=== PATIENT | female | born 1995 | race African-American/Black ===

== ENCOUNTER 2018-09-07 02:26 | Inpatient (IN) ==
[2018-09-07 03:35] LABS: Apearance,Urine CLEAR (Clear); Bacteria,Urine Occasional /HPF (Few); Bilirubin,Urine Negative (Negative); Blood, Urine Moderate mg/dL (Negative); Glucose,Urine (UA) Negative (Negative); Ketones,Urine Negative (Negative); Mucus,Urine Few /LPF (Occasional); Nitrite,Urine Negative (Negative); Protein,Urine Negative; RBC,Urine 19 /HPF (0-4); Renal Epithelial Cells,Urine Occasional /HPF (<1); Squamous Epithelial Cell,Urine Occasional /HPF (0-10); Urine Color Yellow (Yellow); Urine Specific Gravity 1.019 (1.001-1.035); Urine Urobilinogen < 2.0 EU/DL (0.2-1.0); WBC,Urine 19 /HPF (0-6)
[2018-09-07] MEDS ORDERED: ONDANSETRON 4 MG/2 ML VIAL IV PRN (10:21)
[2018-09-07] MEDS ORDERED: LIDOCAINE 1% 50 ML VIAL MISC INJ ONE (10:21)
[2018-09-07] MEDS ORDERED: BUTORPHANOL 2 MG/ML VIAL IV PRN (10:21)
[2018-09-07] MEDS ORDERED: OXYTOCIN/LR 20 UNIT/1,000 ML BAG IV SCH (10:30)
[2018-09-07] MEDS ORDERED: FAMOTIDINE 20 MG/2 ML VIAL IV ONE (10:45)
[2018-09-07] MEDS ORDERED: LACTATED RINGERS 1,000 ML IV ONE (10:45)
[2018-09-07] MEDS ORDERED: ePHEDrine 50 MG/ML AMP IV PRN (10:45)
[2018-09-07] MEDS ORDERED: CITRIC ACID/SODIUM CITRATE 30 ML UDCUP PO ONE (10:45)
[2018-09-07] MEDS ORDERED: NALOXONE 0.4 MG/ML VIAL IV PRN (10:46)
[2018-09-07] MEDS ORDERED: LACTATED RINGERS 250 ML IV PRN (10:46)
[2018-09-07] MEDS ORDERED: hydrOXYzine HCL 25 MG/1 ML VIAL IM PRN (10:46)
[2018-09-07] MEDS ORDERED: PROMETHAZINE 25 MG/1 ML VIAL IM ONE (10:46)
[2018-09-07] MEDS ORDERED: diphenhydrAMINE 50 MG/1 ML VIAL IV PRN ×2 (10:46)
[2018-09-07 10:49] LABS: Basophils % 0.2 % (0.0-0.8); Eosinophils # 0.1 10*3/uL (0.0-0.87); Eosinophils % 0.7 % (0.00-10.9); Hematocrit 35.4 VOL% (35.7-47.0); Hemoglobin 11.5 GM/DL (12.0-16.0); Immature Granulocytes % 0.5 %; Immature Granulocytes Absolute 0.05 #; Lymphocytes % 19.3 % (21.3-54.2); Mean Corpuscular HGB Conc 32.5 GM/DL (32-36); Mean Corpuscular Hemoglobin 30 PG (27-34); Mean Corpuscular Volume 91.7 FL (87-102); Mean Platelet Volume 10.7 FL (9.6-12.0); Monocytes # 0.7 10*3/uL (0.11-0.8); Monocytes % 6.5 % (1.7-12.7); Neutrophils # 7.6 10*3/uL (1.4-7.4); Neutrophils % 72.8 % (38.7-73.9); Platelet Count 258 T/CUMM (130-400); Red Blood Count 3.86 MC/CUMM (3.8-5.5); Red Cell Distribution Width 14.6 % (9.3-17.3); White Blood Count 10.5 T/CUMM (4-12)
[2018-09-07] MEDS ORDERED: fentaNYL 2 MCG/ROPIV 0.2% EPID 100 ML EPIDURAL SCH (11:00)
[2018-09-07] MEDS: LACTATED RINGERS 1,000 ML IV SCH (11:20)
[2018-09-07 13:26] LABS: Apearance,Urine CLEAR (Clear); Bacteria,Urine Occasional /HPF (Few); Bilirubin,Urine Negative (Negative); Blood, Urine Negative (Negative); Glucose,Urine (UA) Negative (Negative); Ketones,Urine 80 mg/dL (Negative); Mucus,Urine Many /LPF (Occasional); Nitrite,Urine Negative (Negative); Protein,Urine 30 MG/DL; RBC,Urine 2 /HPF (0-4); Squamous Epithelial Cell,Urine Occasional /HPF (0-10); Urine Color Amber (Yellow); Urine Specific Gravity 1.027 (1.001-1.035); WBC,Urine 10 /HPF (0-6)
[2018-09-07] MEDS ORDERED: TERBUTALINE 1 MG/1 ML VIAL SUBCUT ONE (14:08)
[2018-09-07] MEDS ORDERED: ceFAZolin 3,000 MG in SYRINGE 1 EACH IV ONE (14:16)
[2018-09-07] MEDS ORDERED: MORPHINE 10 MG/10 ML VIAL ONE (18:12)
[2018-09-07] MEDS ORDERED: ONDANSETRON 4 MG/2 ML VIAL ONE (18:22)
[2018-09-07] MEDS ORDERED: PHENYLEPHRINE 1 MG/10 ML SYRINGE IV ONE (18:23)
[2018-09-07] MEDS ORDERED: LIDOCAINE MPF 2% /EPI 20 ML VIAL ONE (18:23)
[2018-09-07] MEDS ORDERED: SODIUM BICARBONATE 2.4 MEQ/5 ML VIAL ONE (18:23)
[2018-09-08] MEDS: ceFAZolin 1,000 MG in SYRINGE 1 EACH IV SCH ×3 (01:28→15:00)
[2018-09-08 02:08] LABS: Basophils % 0.1 % (0.0-0.8); Eosinophils % 0.1 % (0.00-10.9); Hematocrit 30.5 VOL% (35.7-47.0); Hemoglobin 9.8 GM/DL (12.0-16.0); Immature Granulocytes % 0.4 %; Immature Granulocytes Absolute 0.05 #; Lymphocytes # 2.2 10*3/uL (1.4-4.0); Lymphocytes % 16.1 % (21.3-54.2); Mean Corpuscular HGB Conc 32.1 GM/DL (32-36); Mean Corpuscular Hemoglobin 29 PG (27-34); Mean Platelet Volume 10.8 FL (9.6-12.0); Monocytes # 0.6 10*3/uL (0.11-0.8); Monocytes % 4.6 % (1.7-12.7); Neutrophils # 10.6 10*3/uL (1.4-7.4); Neutrophils % 78.7 % (38.7-73.9); Platelet Count 238 T/CUMM (130-400); Red Blood Count 3.35 MC/CUMM (3.8-5.5); Red Cell Distribution Width 14.4 % (9.3-17.3); White Blood Count 13.4 T/CUMM (4-12)
[2018-09-08] MEDS: LACTATED RINGERS 1,000 ML IV SCH (04:12)
[2018-09-08] MEDS ORDERED: LACTATED RINGERS 1,000 ML IV SCH (04:30)
[2018-09-08] MEDS: IBUPROFEN 800 MG TABLET PO PRN ×2 (08:17→20:10)
[2018-09-08] MEDS: MAGNESIUM HYDROXIDE SUSP 30 ML UDCUP PO SCH ×2 (08:19→20:10)
[2018-09-08] MEDS: DOCUSATE SODIUM 100 MG CAPSULE PO SCH ×2 (08:19→20:10)
[2018-09-08] MEDS: SIMETHICONE CHEW 80 MG TABLET PO PRN ×2 (08:19→20:10)
[2018-09-08 08:46] LABS: Basophils % 0.2 % (0.0-0.8); Eosinophils # 0.1 10*3/uL (0.0-0.87); Eosinophils % 0.5 % (0.00-10.9); Hematocrit 31.2 VOL% (35.7-47.0); Immature Granulocytes % 0.3 %; Immature Granulocytes Absolute 0.03 #; Lymphocytes # 1.7 10*3/uL (1.4-4.0); Lymphocytes % 16.5 % (21.3-54.2); Mean Corpuscular HGB Conc 32.1 GM/DL (32-36); Mean Corpuscular Hemoglobin 29 PG (27-34); Mean Corpuscular Volume 90.4 FL (87-102); Mean Platelet Volume 10.7 FL (9.6-12.0); Monocytes # 0.6 10*3/uL (0.11-0.8); Neutrophils # 7.9 10*3/uL (1.4-7.4); Neutrophils % 76.5 % (38.7-73.9); Platelet Count 219 T/CUMM (130-400); Red Blood Count 3.45 MC/CUMM (3.8-5.5); Red Cell Distribution Width 14.3 % (9.3-17.3); White Blood Count 10.4 T/CUMM (4-12)
[2018-09-08] MEDS ORDERED: BISACODYL 10 MG SUPP RECTAL PRN (23:06)
[2018-09-09] MEDS: IBUPROFEN 800 MG TABLET PO PRN ×4 (04:07→22:35)
[2018-09-09] MEDS: DOCUSATE SODIUM 100 MG CAPSULE PO SCH ×2 (09:30→20:04)
[2018-09-09] MEDS: SIMETHICONE CHEW 80 MG TABLET PO PRN ×2 (09:31→20:04)
[2018-09-09] MEDS: MAGNESIUM HYDROXIDE SUSP 30 ML UDCUP PO SCH ×2 (09:31→20:04)
[2018-09-10] MEDS: IBUPROFEN 800 MG TABLET PO PRN (04:14)
[2018-09-10] MEDS: DOCUSATE SODIUM 100 MG CAPSULE PO SCH (08:57)
[2018-09-10 11:40] VITALS: BP 118/64
[2018-09-10] MEDS ORDERED: DIPH/TET/ACEL PERT BOOSTER VACCINE 0.5 ML VIAL IM ONE (15:40)
== END 2018-09-10 18:10 | disposition home or self-care (01) | DRG 540 ==
LOC: N.LDOUT 02:26 → N.LD 02:31 → N.OB 23:05
PROVIDERS: ADMIT Obstetrics & Gynecology; ATTEND Obstetrics & Gynecology
PROC: LDCSECT (ICD-10-PCS; 2018-09-07 16:45)